=== PATIENT | female | born 1970 | race Caucasian/White ===

== ENCOUNTER → 2019-08-14 | Outpatient (CLI) | payer OTHER ==
--- NOTE | 2019-08-16 15:02 | MAM ---
EXAM DESCRIPTION: 3D Screening BILATERAL : Digital Mammography. CLINICAL HISTORY: 49 years Female SCREENING . No complaints. No personal or family history of breast cancer. Menarche age 14. Childbirth age 18. Menopause age unknown. No HRT. Lifetime risk of developing breast cancer (Tyrer-Cuzick model)(%): 6.1. COMPARISON: Baseline study at this facility. No prior reports available. TECHNIQUE: Bilateral CC and MLO projection full-field images, digital tomosynthesis mammographic technique. Bilateral digital 2-D full-field MLO images. CAD available for 2-D images. FINDINGS: The breast parenchymal density pattern is: Scattered areas of fibroglandular density. No skin thickening or nipple retraction. Small cluster of microcalcifications upper mid left breast. Small mass density, partially circumscribed margins, approximately 5 mm, 3 cm from the nipple left breast 12:00-1:00 position. No microcalcifications. Focal asymmetry middle third right breast upper outer quadrant 10:00 position., Smaller mass densities posterior at approximately the same position 11 cm from the nipple. IMPRESSION: BI-RADS CATEGORY: 0 - INCOMPLETE- Need additional imaging evaluation. FOLLOW-UP: Recall for additional imaging: Bilateral full-field 2-D and tomosynthesis images LM projection. Bilateral directed breast ultrasound regions of interest.. Written communication concerning the IMPRESSION and Follow-up, will be mailed to the patient and referring health care provider. Electronically signed by: Иван Garcia MD 08/16/2019 3:00 PM [employer]OU[employer]NER
== END ==
LOC: MAMMO 13:00
PROVIDERS: ATTEND Family Medicine
DX: Z12.31 Encounter for screening mammogram for malignant neoplasm of breast (principal)

== ENCOUNTER → 2019-12-05 | Outpatient (CLI) | payer OTHER ==
--- NOTE | 2019-12-07 15:43 | MAM ---
EXAM DESCRIPTION: 3D Diagnostic, Bilateral (accession [id number]), Breast,Bilateral (accession [id number]): Ultrasound CLINICAL HISTORY: 49 yearsFemaleABNORMAL MAMMOGRAPHY focal asymmetry middle third right breast. Retroareolar mass density left breast. Lifetime risk of developing breast cancer (Tyrer-Cuzick model)(%): 6.1. COMPARISON: Other TECHNIQUE: Bilateral LM projection full-field images, digital tomosynthesis technique. Bilateral 2-D digital full-field images: LM and CC projections. CAD available for 2-D images.. Transcutaneous scanning of the bilateral breasts utilizing morgan-scale and Doppler modes. Scanning performed by the shipping clerk/admin ; observation by Dr. Garcia. FINDINGS: The breast parenchymal density pattern is: Scattered areas of fibroglandular density. No skin thickening or nipple retraction focal asymmetry again noted in the upper outer quadrant of the middle third of the right breast. No mass density. Small focal mass density at the 12:00 position approximately 4 cm from the left nipple. No abnormal microcalcifications bilaterally. Ultrasound: At the region of interest in the right breast 5 cm from the nipple at 10:00, mostly fatty tissue. Focal fibroglandular tissues present. No circumscribed mass, fluid collection, or cyst. At the region of interest 3 cm from the nipple at 12:00 left breast, mostly fatty tissues. Small hypoechoic lymph node with circumscribed margins measuring 4.5 x 2.0 mm. IMPRESSION: Benign exam. BIRAD CATEGORY: 2 BENIGN FINDINGS. RECOMMENDATIONS: FOLLOW UP: Return to routine digital bilateral mammographic screening, one year interval from July 2019. Written communication explaining the IMPRESSION and follow-up, will be mailed to the patient and referring health care provider. The FINDINGS and the FOLLOW-UP plan were reviewed in person with the patient after the examination. According to the [employer], yearly mammograms are recommended starting at age 40 and continuing as long as a woman is in good health. Any breast change noted on a breast self-exam should be reported promptly to the patient's healthcare provider. Breast MRI is recommended for women with an approximately 20-25% or greater lifetime risk of breast cancer, including women with a strong family history of breast or ovarian cancer and women who have been treated for Hodgkin's disease. A negative mammographic report should not delay tissue diagnosis in patients with significant clinical history or physical findings. Extremely dense breast tissue limits the sensitivity of digital mammography. Electronically signed by: Иван Garcia MD 12/07/2019 3:41 PM CDT
== END ==
LOC: MAMMO 09:04
PROVIDERS: ATTEND Family Medicine
DX: R92.8 Other abnormal and inconclusive findings on diagnostic imaging of breast (principal)
CPT/HCPCS: 76641; 77066; G0279